=== PATIENT | female | born 1995 | race Caucasian/White ===

== ENCOUNTER 2021-08-03 11:52 | Outpatient (REF) | payer OTHER, SELFPAY ==
[2021-08-05 05:27] LABS: Varicella IgG Antibody <135.00 index
[2021-08-05 09:54] LABS: HBS Num1 1.85 mIU/mL (0-7.99); ~Hepatitis B Surface Antibody NONREACTIVE (Nonreactive)
[2021-08-05 18:47] LABS: TS Negative Control Passed; TS Panel A 0; TS Panel B 0; TS Positive Control Passed; TSpotTB Negative (Negative)
== END 2021-08-03 11:53 | disposition home or self-care (01) ==
LOC: HO.HMGCLDS 11:52
PROVIDERS: PCP Internal Medicine; Visit Provider Internal Medicine
DX: Z01.84 Encounter for antibody response examination (principal); Z11.1 Encounter for screening for respiratory tuberculosis; Z78.9 Other specified health status
CPT/HCPCS: 36415; 86481; 86706; 86735; 86762; 86765; 86787

== ENCOUNTER 2021-08-24 10:51 | Outpatient (REF) | payer OTHER, SELFPAY ==
[2021-08-24 14:14] LABS: Mean Corpuscular HGB Conc 29.4 g/dl (31.0-35.0); Mean Corpuscular Hemoglobin 18.8 pg (27.0-33.0)
[2021-08-24 14:16] LABS: Hematocrit 37.4 % (37.0-47.0); Red Blood Count 5.86 X10*6/uL (4.20-5.50); Red Cell Distribution Width 17.9 % (11.0-16.0); White Blood Count 9.3 X10*3/uL (4.8-10.8)
[2021-08-24 14:21] LABS: Mean Corpuscular Volume 63.8 fL (80.0-98.0)
[2021-08-24 14:30] LABS: Alanine Aminotransferase 24 U/L (0-31); Albumin Level 4.3 g/dL (3.5-5.0); Alkaline Phosphatase 92 U/L (39-117); Anion Gap 11 (12-20); Aspartate Amino Transferase 19 U/L (5-31); Bilirubin Total 0.6 mg/dL (0.0-1.0); Blood Urea Nitrogen 12 mg/dL (9-16); Calcium 9.2 mg/dL (8.4-10.2); Carbon Dioxide 26 mmol/L (22-29); Chloride 105 mmol/L (96-108); Cholesterol 116 mg/dL; Estimated Glomerular Filt Rate > 60; Glucose Fasting 81 mg/dL (60-99); HDL Cholesterol 43 mg/dL; LDL Cholesterol Calculated 65 mg/dl; Potassium 4.2 mmol/L (3.3-5.1); Sodium 138 mmol/L (135-145); Triglycerides 41 mg/dL
[2021-08-24 14:39] LABS: Platelet Count 198 X10*3/uL (160-400)
[2021-08-25 09:06] LABS: Varicella IgG Antibody <135.00 index
== END 2021-08-24 10:52 | disposition home or self-care (01) ==
LOC: HO.HMGCLDS 10:51
PROVIDERS: Visit Provider Internal Medicine
DX: Z00.00 Encounter for general adult medical examination without abnormal findings (principal); J45.909 Unspecified asthma, uncomplicated; Z78.9 Other specified health status
CPT/HCPCS: 36415; 80053; 80061; 85027; 86787

== ENCOUNTER 2022-01-20 09:24 | Outpatient (REF) | payer OTHER, SELFPAY ==
[2022-01-20 11:28] LABS: Iron 114 mcg/dL (30-160); Percent Iron Saturation 33 % (15-50); Total Iron Binding Capacity 347 mcg/dL (228-428); Unsaturated Iron Binding 233 ug/dL
[2022-01-20 11:43] LABS: HBS Num1 > 1000.00 mIU/mL (0-7.99); ~Hepatitis B Surface Antibody REACTIVE (Nonreactive)
== END 2022-01-20 09:25 | disposition home or self-care (01) ==
LOC: HO.HMGCLDS 09:24
PROVIDERS: Visit Provider Internal Medicine
DX: D64.9 Anemia, unspecified (principal); Z78.9 Other specified health status
CPT/HCPCS: 36415; 83540; 86706

== ENCOUNTER → 2022-02-16 15:09 | Outpatient (BNVA) | payer SELFPAY | PROVIDERS: PCP Internal Medicine | DX: Z02.83 Encounter for blood-alcohol and blood-drug test (principal) ==

== ENCOUNTER 2024-04-21 23:56 | Emergency (ER) | payer OTHER, SELFPAY ==
[2024-04-22 00:04] VITALS: BP 153/74; PULSE 89; RESP 16; TEMP 36.4; O2SAT 98; BMI 43.6
--- NOTE | 2024-04-22 00:13 | ED_ITS ---
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 She came in as the symptoms will not resolve. No rash, n/v. No fevers. MD complaint: allergic reaction Onset (ago): day(s) (Monday night) Exposure: food Symptoms: difficulty swallowing and hoarseness Severity: moderate Treatment prior to arrival: benadryl and other Previous Allergic Reaction History: anaphylaxis Related Data Previous Rx's ?Medication ?Instructions ?Recorded albuterol sulfate 90 mcg/actuation 2 puff inhalation Q6H PRN 11/03/21 aerosol inhaler shortness of breath or wheezing #8.5 grams montelukast 10 mg tablet 10 mg PO DAILY #90 tabs 11/03/21 epinephrine 0.3 mg/0.3 mL 0.3 mg (0.3 mL) IM Q10M PRN 04/22/24 injection, auto-injector anaphylaxis #2 ea prednisone 20 mg tablet 40 mg (2 x 20 mg) PO DAILY 5 days 04/22/24 #10 tabs Allergies Allergy/AdvReac Type Severity Reaction Status Date / Time iron Allergy Unknown beta thal Verified 04/22/24 00:06 pineapple [Pineapple] Allergy Unknown anaphylaxis, Verified 04/22/24 00:06 TONGUE AND LIP SWELLING Review of Systems Review of Systems: Constitutional : No Fever, No Chills ENT/Mouth : no oral swelling, pos Hoarseness, No Swallowing Difficulty Eyes: No Eye Pain, No Swelling, No Redness Cardiovascular : No Chest Pain, pos SOB Respiratory : No Cough, No Sputum, No Wheezing, No Smoke Exposure, No Dyspnea Gastrointestinal : No Nausea, No Vomiting, No Diarrhea, No abdominal Pain Genitourinary : No Dysuria, No Urinary Frequency, No Hematuria Musculoskeletal : No joint pain, No Myalgias, No Joint Swelling Skin : No Skin Lesions, positive rash Neuro : No Weakness, No Numbness, No Headache Psych : No Anxiety/Panic, No Depression All other systems reviewed and are negative [facility], [facility] Past Medical History Attestation statement: The following information was validated with the patient. Source: old records reviewed Medical History Anemia Annual physical exam Asthma Allergic rhinitis Beta thalassemia minor Seasonal allergies Anxiety with depression Surgical History No pertinent past surgical history Family History Family History (Updated 06/15/20 @ 08:18 by Elsa Pettit, RMA, STRIPPER APPRENTICE) Father No problems noted. Mother No problems noted. Brother No problems noted. Sister No problems noted. Social History Social History (Updated 04/22/24 @ 00:16 by Jessenia Poe DO) Alcohol intake: never Patient Tobacco Use Status: Never used Tobacco Advance Directives: No Advance Directives Information Provided: Yes Physical Exam ED Vital Signs: Vital Signs - 24 hr 04/22/24 00:04 04/22/24 00:20 Temperature 97.6 F Pulse Rate 89 70 Respiratory Rate 16 20 Blood Pressure 153/74 H Pulse Oximetry 98 Oxygen Delivery Method Room Air BMI result Body Mass Index 43.6 Appearance: Alert. Oriented X3. No acute distress. Eyes: Pupils equal, round and reactive to light. ENT: Pharynx normal. no oral swelling, mild insp stridor heard Neck: Normal inspection. Neck supple. CVS: Normal heart rate and rhythm. Pulses normal. Respiratory: No respiratory distress. Breath sounds normal. Abdomen: Soft and nontender. Skin: Skin warm and dry. Normal skin color. Normal skin turgor. Extremities: No lower extremity edema. No calf ttp Neuro: Oriented X 3. No motor deficit. No sensory deficit. 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 At this time there is no oral swelling on exam no hypoxia and no wheezing on lung exam will start on IV steroids and racemic epi if no improvement will dose with IM epi Differential Diagnosis Differential Diagnoses: The differential diagnosis associated with the presentation includes allergic reaction Admission/Observation Consideration of admission/observation: Escalation of care including admission/observation considered resolved symptoms does not want to stay for 2 hour observation with racemic epi they live down the road and she has not progressed to full angioedema since Monday. She is also RN Independent Historian Clinical information obtained from an independent historian. History obtained from or confirmed by: Parent External Record Review External record reviewed: Office record Prescription Management I considered prescription management with: Other Discharge Plan Discharge Clinical Impression: Allergic reaction Qualifiers: Encounter type: initial encounter Qualified Code(s): T78.40XA - Allergy, unspecified, initial encounter Patient Disposition: Home, Self-Care Instructions: General Allergic Reaction (ED) Additional Instructions: return for any worsening symptoms such as swelling, difficulty breathing, fevers or any other concerns CARRY YOUR EPI PEN WITH YOU AT ALL TIMES take steroid with food Prescriptions: New prednisone 20 mg tablet 40 mg PO DAILY 5 Days Qty: 10 0RF epinephrine 0.3 mg/0.3 mL auto-injector 0.3 mg IM Q10M PRN (Reason: anaphylaxis) Qty: 2 0RF Rx Instructions: for 2 doses No Action albuterol sulfate 90 mcg/actuation HFA aerosol inhaler 2 puff inhalation Q6H PRN (Reason: shortness of breath or wheezing) Qty: 8.5 1RF montelukast 10 mg tablet 10 mg PO DAILY Qty: 90 3RF Stand Alone Forms: Work/School Release Print Language: Occitan
[2024-04-22] MEDS: methylPREDNISolone Sod Succ 125 MG/2 ML VIAL IVPUSH (00:19)
[2024-04-22 00:20] VITALS: PULSE 70; RESP 20; O2SAT 99
[2024-04-22] MEDS: Racepinephrine HCL 0.5 ML VIAL.NEB INHALE (00:20)
[2024-04-22 01:22] VITALS: BP 153/74; PULSE 89; RESP 16; TEMP 36.4; O2SAT 99
== END 2024-04-22 01:23 | disposition home or self-care (01) ==
PROVIDERS: Emergency Provider Emergency Medicine; PCP Internal Medicine
DX: T78.40XA Allergy, unspecified, initial encounter (principal); R49.0 Dysphonia; X58.XXXA Exposure to other specified factors, initial encounter
CPT/HCPCS: 94640; 96372; 99283; 99284; J2919

== ENCOUNTER 2024-06-04 09:59 | Outpatient (AMB) | payer OTHER, SELFPAY ==
[2024-06-04 10:19] VITALS: BP 110/70; PULSE 86; O2SAT 97; BMI 40.9
--- NOTE | 2024-06-04 10:19 | MHC.PC.OV ---
Vital Signs 06/04/24 10:19 Height 5 ft 7 in Weight 261 lb BMI 40.9 BP 110/70 Blood Pressure Location Lt brachial Position Sitting Pulse 86 Pulse Source Pulse Oximeter Pulse Oximetry (%) 97 Oxygen Delivery Method Room Air Intake Visit Reasons: PE/overdue 2 yrs. Intake Note: Pt is here today for PE. Allergies iron Allergy (Unknown, Verified 06/04/24 10:20) beta thal pineapple [Pineapple] Allergy (Unknown, Verified 06/04/24 10:20) anaphylaxis, TONGUE AND LIP SWELLING Medication List - Last Reconciled 06/04/24 by Heidy Chase MD albuterol sulfate 90 mcg/actuation 2 puffs inhalation Q6H PRN epinephrine 0.3 mg (0.3 mL) IM Q10M PRN Tobacco use date assessed: 06/04/24 Dental Screening Dental Screen Date: 06/04/24 Did you have a dental visit in the last 12 months?: Yes Did you have a dental problem in the last 6 months where you did not have access to dental care?: No Was dental information given to patient?: Patient has dentist HPI PE/overdue 2 yrs. HPI Details Pt presents for PE. [facility] Medical History (Updated 06/04/24 @ 11:10 by Heidy Chase MD) Anemia Annual physical exam Asthma Allergic rhinitis Beta thalassemia minor Seasonal allergies Anxiety with depression Surgical History No pertinent past surgical history Family History (Updated 06/04/24 @ 10:58 by Heidy Chase MD) Father No problems noted. Mother Uterine cancer Brother No problems noted. Sister No problems noted. 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 1. Little interest or pleasure in doing things: not at all 2. Feeling down, depressed, or hopeless: not at all 3. Trouble falling or staying asleep, or sleeping too much: not at all 4. Feeling tired or having little energy: several days 5. Poor appetite or overeating: not at all 6. Feeling bad about yourself - or that you are a failure or have let yourself or your family down: not at all 7. Trouble concentrating on things, such as reading the newspaper or watching television: not at all 8. Moving or speaking so slowly that other people could have noticed. Or the opposite - being so fidgety or restless that you have been moving around a lot more than usual: not at all 9. Thoughts that you would be better off or of hurting yourself in some way: not at all Total score: 1 Depression Screening Interpretation: Negative Depression Screening Done: Yes [id number] - PHQ-9 Billing: Yes Source: Developed by Drs. Issac Shipman, Ivana Chapman, Aly Goldberg and colleagues, with an educational michael from [address]. Thrive Questionnaire Date Thrive assessed: 06/04/24 I am a: Patient What is your living situation today?: I have a steady place to live Within the past 12 months, did the food you bought not last and you didn't have the money to get more?: Never true Within the past 12 months, did you worry whether your food would run out before you got money to buy more?: Never true Do you have trouble paying for medicines?: No Do you have trouble getting transportation to medical appointments?: No Do you have trouble paying your heating and electricity bill?: No Do you have trouble taking care of your child, family member or friend?: No Do you have trouble with day-to-day activities such as bathing, preparing meals, shopping, managing finances, etc.?: No Are you currently unemployed and looking for a job?: No Are you interested in more education?: Yes Please select the resources that you would like help with: None Currently or been in a relationship where the following occur: No concerns reported THRIVE Score: 0 AUDIT C Alcohol Use Questionnaire (AUDIT-C) 1. How often do you have a drink containing alcohol?: Monthly or less 2. How many drinks containing alcohol do you have on a typical day when you are drinking?: 1 or 2 3. How often do you have six or more drinks on one occasion?: Never Total Score: 1 ELIZABETH-7 AMB Questionnaire ELIZABETH-7 Date ELIZABETH - 7 assessed: 06/04/24 Feeling nervous, anxious, or on edge: 1 = Several days Not being able to stop or control worryin = Not at all Worrying too much about different things: 1 = Several days Trouble relaxin = Several days Being so restless that it is hard to sit still: 0 = Not at all Becoming easily annoyed or irritable: 1 = Several days Feeling afraid as if something awful might happen: 0 = Not at all Total ELIZABETH-7 score (0-4 normal; 5-9 mild; 10-14 moderate; 15-21 severe): 4 Source: Developed by Drs. Issac Shipman, Ivana Chapman, Aly Goldberg and colleagues, with an educational michael from [address]. ELIZABETH-7 Assessment Billing ELIZABETH-7 Assessment Tool: ELIZABETH-7 Assessment 11325 Review of Systems Const All systems reviewed & are unremarkable except as noted in HPI and below Eyes Reports no additional complaints ENT Reports no additional complaints Card Reports no additional complaints Resp Reports no additional complaints GI Reports no additional complaints Reports no additional complaints Physical exam (Primary Care) Vital Signs: Last Vital Signs Pulse 86 06/04/24 10:19 BP 110/70 06/04/24 10:19 Pulse Ox 97 06/04/24 10:19 Oxygen Delivery Method Room Air 06/04/24 10:19 BMI result Body Mass Index 40.9 Tobacco/Smoking Status: Tobacco use Status Tobacco use date assessed 06/04/24 06/04/24 10:25 Patient Tobacco Use Status Never used Tobacco 06/04/24 10:25 e-Cigarette/Vaping Use Never Used 06/04/24 10:25 PHQ-9: PHQ-9 Score PHQ-9: Total score 1 06/04/24 10:25 Depression Screening Interpretation: Negative Thrive Assessment: Date of Thrive Assessment Date Thrive assessed 06/04/24 06/04/24 10:25 Currently or been in a relationship where the following occur: No concerns reported Const General: no acute distress HENMT Head: Yes normal to inspection Ears: hearing grossly normal bilaterally Face and sinus: Yes normal facial exam Mouth: Normal oral and palatal mucosa present Throat: Yes posterior oropharynx normal Eyes General: appearance normal, both eyes and all related structures Neck Neck: Yes no lymphadenopathy and Yes supple Resp Effort & Inspection: normal respiratory effort Auscultation: clear to auscultation bilaterally Cardio Rhythm: regular rhythm Heart sounds: S1 normal heart sound present and S2 normal heart sound present GI Inspection: Yes normal to inspection Palpation (GI): Soft to palpation Percussion: Yes normal to percussion Auscultation: normal bowel sounds Coding Level of Care Code Est Pt Prev Care 18-39y(27526) Diagnoses Annual physical exam Z. External hemorrhoid K64.4 Additional Codes ELIZABETH-7 Assessment Billing - ELIZABETH-7 Assessment Tool: ELIZABETH-7 Assessment 71298 ([id number]) PHQ-9 - 68352 - PHQ-9 Billing: Yes ([id number]) Assessment & Plan Assessment & Plan (1) Annual physical exam: Code(s): Z00. - Encounter for general adult medical examination without abnormal findings Category: Medical Plan: Well-balanced diet regular physical activity discussed with the patient she will have a fasting blood work today. Patient will schedule an appointment with pad machine offbearer for pelvic exam and Pap smear (2) External hemorrhoid: Code(s): K64.4 - Residual hemorrhoidal skin tags Category: Medical Plan: Patient was advised to avoid constipation and will use over the counter hemorrhoid cream as needed Orders: Orders Complete Blood Count Auto Diff Today Z00.00 - Encounter for general adult medical examination without abnormal findings Lipid Panel Today Z00.00 - Encounter for general adult medical examination without abnormal findings Comprehensive [place]. Panel Fast Today Z00.00 - Encounter for general adult medical examination without abnormal findings UA w Microscopic Today Z00.00 - Encounter for general adult medical examination without abnormal findings TSH reflex Free T4 Today Z00.00 - Encounter for general adult medical examination without abnormal findings Vitamin D 25-OH Total Today Z00.00 - Encounter for general adult medical examination without abnormal findings Medications: Refilled albuterol sulfate 90 mcg/actuation 2 puffs inhalation Q6H PRN 8.5 grams 1RF shortness of breath or wheezing
--- OUTSIDE RECORDS SUMMARY | 2024-06-05 19:40 | XMS_ITS | Data Portability ---
Author Organization [facility] [address] Address [address] [place] [address] Assessment No assessment recorded. Plan of Treatment Reminders Order Date Submit Date Provider Last Modified By Organization Details Last Modified Time Details Appointments None recorded. Lab None recorded. Referral None recorded. Procedures None recorded. Surgeries None recorded. Imaging None recorded. Medication Orders tuberculin PPD 5 tub. unit/0.1 mL intradermal injection solution 2022 023 [email or web address] Not available 12:36:26 Patient TargetsNo targets recorded. Patient InstructionsNo instructions recorded. Reason for Referral None Reported. Medical Equipment None Reported. Medications Name Sig Start Date Stop Date Status Note LastModified by Organization Details LastModified Time tuberculin PPD 5 tub. unit/0.1 mL intradermal injection solution Inject 0.1 mL by intradermal route for 1 day. 2022 active Not Available Not Available Not Avai lable montelukast 10 mg tablet TAKE 1 TABLET BY MOUTH DAILY active Not Available Not Available Not Available albuterol sulfate HFA 90 mcg/actuatio n aerosol inhaler INHALE 2 PUFFS BY MOUTH EVERY 6 HOURS NEEDED FOR SHORTNESS OF BREATH OR WHEEZING active Not Available Not Available Not Available Vitals None Recorded Social History None recorded. Functional Status None recorded. Mental Status None recorded. Family History Nothing Reported. Medical History No medical history recorded. Gynecological HistoryNo gynecological history recorded. Obstetrics History GPAL:G 0 P 0 0 0 0 Past Encounters Encounter ID Performer Location Encounter Start Date Encounter Closed Date Diagnosis/Indication Diagnosis SNOMED-CT Code Diagnosis ICD10 Code [id number] [address] [address] 07/29/2021 10:02:39 07/29/2021 11:17:19 [id number] [address] [facility] [place] [address] 12/17/2018 19:31:29 12/17/2018 19:55:47 [id number] [address] [facility] [place] [address] 07/29/2021 10:02:02 07/29/2021 11:17:15 [id number] Iker Ramirez, NURSE MONITORING [address] [facility] [place] [address] 08/08/2022 11:48:27 08/08/2022 12:42:11 History and physical examination, occupation [id number] Z02.1 Health Concerns Section Related Observation LastModified by Organization Detai ls LastModified Time None Recorded Concern Status LastModified by Organization Details LastModified Time None Recorded Advance Directives Directive None Recorded Payers Encounter Date Sequence Insurance Name Policy Number Policy Luis Covered Member ID Luis Member ID Guarantor Name 12/17/2018 1 [facility] [id number] Babs Caal [id number] Babs Caal 08/08/2022 DO NOT USE Babs Caal PAY AT TIME OF SERVICE Babs Caal OBGyn Episode No OBEpisode recorded.
== END 2024-06-04 11:07 | disposition home or self-care (01) ==
PROVIDERS: PCP Internal Medicine; Visit Provider Internal Medicine
DX: Z00.00 Encounter for general adult medical examination without abnormal findings (principal); K64.4 Residual hemorrhoidal skin tags

== ENCOUNTER 2024-06-04 09:59 | Outpatient (REF) | payer OTHER, SELFPAY ==
[2024-06-04 13:02] LABS: MANUAL DIFF FLAG NO
[2024-06-04 13:12] LABS: Basophils Percent Auto 0.2 % (0-2); Eosinophils Absolute Auto 0.1 X10*3/uL (0.0-0.4); Hematocrit 37.6 % (37.0-47.0); Imm Gran Abs Auto 0.03 X10*3/uL (0.00-0.03); Imm Gran Pct Auto 0.4 % (0.0-0.4); Lymphocytes Absolute Auto 2.5 X10*3/uL (1.2-4.9); Lymphocytes Percent Auto 29.8 % (20-40); Mean Corpuscular HGB Conc 29.3 g/dl (31.0-35.0); Mean Corpuscular Hemoglobin 18.2 pg (27.0-33.0); Monocytes Absolute Auto 0.4 X10*3/uL (0.1-1.2); Neutrophils Absolute Auto 5.4 x10*3/uL (2.0-8.3); Neutrophils Percent Auto 63.6 % (45-73); Platelet Count 207 X10*3/uL (160-400); Red Blood Count 6.03 X10*6/uL (4.20-5.50); Red Cell Distribution Width 17.9 % (11.0-16.0); White Blood Count 8.4 X10*3/uL (4.8-10.8)
[2024-06-04 13:17] LABS: Mean Corpuscular Volume 62.4 fL (80.0-98.0)
[2024-06-04 13:20] LABS: Appearance Urine Cloudy; Color Urine Yellow; Glucose Urine UA Negative (Negative); Leukocyte Esterase Urine Negative (Negative); Nitrite Urine Negative (Negative); Specific Gravity - Urine 1.025 (1.005-1.025); Urine Blood Negative (Negative); Urine Ketones Negative (Negative); Urine Protein Negative (Neg-Trace)
[2024-06-04 13:28] LABS: Bacteria Urine 4+ (None Seen); Hyaline Casts Urine 0-2 /LPF (0-2); RBC Urine 0-2 /HPF (0-2); WBC Urine 0-5 /HPF (0-5)
[2024-06-04 13:50] LABS: Alanine Aminotransferase 20 U/L (0-31); Albumin Level 4.2 g/dL (3.5-5.0); Alkaline Phosphatase 78 U/L (39-117); Anion Gap 12 (12-20); Aspartate Amino Transferase 19 U/L (5-31); Bilirubin Total 0.4 mg/dL (0.0-1.0); Blood Urea Nitrogen 11 mg/dL (9-16); Calcium 9.1 mg/dL (8.4-10.2); Carbon Dioxide 27 mmol/L (22-29); Chloride 107 mmol/L (96-108); Cholesterol 117 mg/dL (<200); Estimated Glomerular Filt Rate > 60; Glucose Fasting 81 mg/dL (60-99); HDL Cholesterol 37 mg/dL (>40); LDL Cholesterol Calculated 70 mg/dL (<100); Potassium 4.6 mmol/L (3.3-5.1); Sodium 141 mmol/L (135-145); Total Protein 7.2 g/dL (6.5-8.0); Triglycerides 53 mg/dL (<150)
[2024-06-04 13:52] LABS: Vitamin D 25-OH Total 16.3 ng/mL (>30)
[2024-06-04 14:32] LABS: TSH reflex Free T4 1.16 uIU/mL (0.32-4.0)
== END 2024-06-04 10:00 | disposition home or self-care (01) ==
LOC: HO.HMGCLDS 09:59
PROVIDERS: PCP Internal Medicine; Visit Provider Internal Medicine
DX: Z00.00 Encounter for general adult medical examination without abnormal findings (principal)
CPT/HCPCS: 36415; 80053; 80061; 81001; 82306; 84443; 85025; 96127

== ENCOUNTER 2024-10-16 11:51 | Outpatient (AMB) | payer OTHER, SELFPAY ==
--- NOTE | 2024-10-16 12:00 | AM.OFFWIN_ITS ---
Intake Vital Signs 10/16/24 12:05 Weight 262 lb BP 112/78 Blood Pressure Location Rt brachial Position Sitting Pulse 62 Pulse Source Pulse Oximeter Temp 98.7 F Temp Source Oral Pulse Oximetry (%) 98 Oxygen Delivery Method Room Air Intake Visit Reasons: EP-?uti, back pain, numbness in lt thigh Intake Note: Patient here for frequent urination, bladder pressure that has been present for a couple of weeks. she also wanted to discuss her mid back pain that has been present for a while now but the last couple of weeks has worsened to the point where now she has numbness and tingling in thigh. Patient Tobacco Use Status: Never used Tobacco Allergies iron Allergy (Unknown, Verified 06/04/24 10:20) beta thal pineapple [Pineapple] Allergy (Unknown, Verified 06/04/24 10:20) anaphylaxis, TONGUE AND LIP SWELLING Medication List - Last Reconciled 10/16/24 by Fox Echols MD albuterol sulfate 90 mcg/actuation 2 puffs inhalation Q6H PRN epinephrine 0.3 mg (0.3 mL) IM Q10M PRN HPI EP-?uti, back pain, numbness in lt thigh HPI Details History - The patient is a 29-year-old female pr esenting with increased back pain and newly developed pins and needles sensation in the left thigh. - She reports a history of chronic back pain for several years, with the numbness in the left outer thigh extending to the knee being a constant symptom. - The recent exacerbation of back pain a nd onset of pins and needles in the left thigh has been ongoing for the last one to two weeks. - also has been noticing frequency of ur ination and wanted to have a urinalysis done which came back negative - The patient drinks tea regularly, whic h could contribute to urinary frequency due to the diuretic effect of caffeine. 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 - Previous diagnostic imaging such as x- rays has not been performed for her back issues. Problem List - frequency of urination - Chronic Back Pain - Lumbar Radiculopathy (suspected due to symptoms and location of pain) Patient Instructions - Take Aleve with breakfast, and if need ed, once more in the evening for three to four days. - Switch to decaffeinated tea to see if it alleviates urinary symptoms. - Get an x-ray done as ordered, next doo r to this clinic. - Follow up on x-ray results through the patient portal or PCP - your urine test came back negative Review of Systems - General: No fever no chills - Neurological: No headaches no dizziness - Ear nose throat: No sore throat no hearing difficulty no ear pain - Cardiovascular: No syncope, no chest pain, no palpitations - Gastrointestinal: No nausea vomiting or diarrhea Physical Exam General: No acute distress HEENT: No acute findings Neck: Supple Respiratory system: Able to talk in full sentences, no audible wheeze Gastrointestinal: No pain Back: No pain with percussion over thoracic or lumbar area, range of motion intact Extremities: Numbness in left outer thigh extending to the knee, pins and needles sensation POT WASHER: Alert awake oriented x3 motor sensory intact, straight leg test negative left side, neuro exam nonfocal Skin: Normal turgor [facility] Medical History Anemia Annual physical exam Asthma Allergic rhinitis Beta thalassemia minor Seasonal allergies Anxiety with depression Surgical History No pertinent past surgical history Family History Father No problems noted. Mother Uterine cancer Brother No problems noted. Sister No problems noted. 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 partner, works as RN at [employer] Housing: House Alcohol intake: never Patient Tobacco Use Status: Never used Tobacco e-Cigarette/Vaping Use: Never Used service: No Current occupational status: employed Cognitive needs: No Hearing needs: No Vision needs: Yes Physical Exam Vital Signs: Last Vital Signs Temp 98.7 F 10/16/24 12:05 Pulse 62 10/16/24 12:05 BP 112/78 10/16/24 12:05 Pulse Ox 98 10/16/24 12:05 Oxygen Delivery Method Room Air 10/16/24 12:05 Assessment & Plan Assessment & Plan (1) Lumbar radiculitis: Code(s): M54.16 - Radiculopathy, lumbar region (2) Urine frequency: Code(s): R35.0 - Frequency of micturition Plan History - The patient is a 29-year-old female presenting with increased back pain and newly developed pins and needles sensation in the left thigh. - She reports a history of chronic back pain for several years, with the numbness in the left outer thigh extending to the knee being a constant symptom. - The recent exacerbation of back pain and onset of pins and needles in the left thigh has been ongoing for the last one to two weeks. - also has been noticing frequency of urination and wanted to have a urinalysis done which came back negative - The patient drinks tea regularly, which could contribute to urinary frequency due to the diuretic effect of caffeine. 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 - Previous diagnostic imaging such as x-rays has not been performed for her back issues. Problem List - frequency of urination - Chronic Back Pain - Lumbar Radiculopathy (suspected due to symptoms and location of pain) Patient Instructions - Take Aleve with breakfast, and if needed, once more in the evening for three to four days. - Switch to decaffeinated tea to see if it alleviates urinary symptoms. - Get an x-ray done as ordered, next door to this clinic. - Follow up on x-ray results through the patient portal or PCP - your urine test came back negative Orders: Orders XR lumbar spine 2-3V Today M54.16 - Radiculopathy, lumbar region Coding Level of Care Code Est Pt Level 3 (22431) Diagnoses Lumbar radiculitis M54.16 Urine frequency R35.0
[2024-10-16 12:05] VITALS: BP 112/78; PULSE 62; TEMP 37.1; O2SAT 98
--- OUTSIDE RECORDS SUMMARY | 2024-10-16 14:20 | XMS_ITS | Data Portability ---
Author Organization [facility] [address] Address [address] [place] [address] Assessment No assessment recorded. Plan of Treatment [...] Diagnosis/Indication Diagnosis SNOMED-CT Code Diagnosis ICD10 Code Diagnosis Note [id number] [address] [address] 07/29/2021 10:02:39 07/29/2021 11:17:19 [id number] [address] [place] [address] 12/17/2018 19:31:29 12/17/2018 19:55:47 [id number] [address] [place] [address] 07/29/2021 10:02:02 07/29/2021 11:17:15 [id number] Iker Ramirez, RESIDENTIAL SUPPORT WORKER [address] [place] [address] 08/08/2022 11:48:27 08/08/2022 12:42:11 History and physical examination, occupation [id number] Z02.1 Health Concerns Section Related Observation LastModified by Organization Detai ls LastModified Time None Recorded Concern Status LastModified by Organization Details LastModified Time None Recorded Advance Directives Directive None Recorded Payers Encounter Date Sequence Insurance Name Policy Number Policy Luis Covered Member ID Luis Member ID Guarantor Name 12/17/2018 1 [facility] [id number] Babs Caal [id number] Babs Caal 08/08/2022 DO NOT USE Babs Caal PAY AT TIME OF SERVICE PAY AT TIME OF SERVICE Babs Caal OBGyn Episode No OBEpisode recorded.
== END 2024-10-16 12:27 | disposition home or self-care (01) ==
PROVIDERS: PCP Internal Medicine; Visit Provider Internal Medicine
DX: M54.16 Radiculopathy, lumbar region (principal); R35.0 Frequency of micturition; Z13.9 Encounter for screening, unspecified

== ENCOUNTER 2024-10-16 11:51 | Outpatient (REF) | payer OTHER, SELFPAY ==
--- NOTE | ~2024-10-16 | XR_ITS ---
EXAMINATION: XR LUMBOSACRAL SPINE CLINICAL INFORMATION: M54.16 - Radiculopathy, lumbar region COMPARISON: None available. TECHNIQUE: Three views of the lumbosacral spine. FINDINGS: Normal bone mineralization. Trace right convex scoliosis, possibly positional. Normal lordosis and alignment. No subluxations. No compression deformity, fracture, or suspicious bone lesion. Disc spaces appear preserved. The facets are normally aligned. No significant facet arthrosis. The imaged sacrum and SI joints appear normal. There is no soft tissue abnormality. XR/XR lumbar spine 2-3V IMPRESSION: Essentially normal lumbar spine. Electronically signed by: Chirag Barron MD 10/18/2024 09:02 AM EDT
== END 2024-10-16 11:52 | disposition home or self-care (01) ==
LOC: HO.HMGCX 11:51
PROVIDERS: PCP Internal Medicine; Visit Provider Internal Medicine
DX: M54.16 Radiculopathy, lumbar region (principal); R35.0 Frequency of micturition
CPT/HCPCS: 72100; 81003

== ENCOUNTER → 2024-10-16 12:21 | Outpatient (BNV) | payer OTHER, SELFPAY | PROVIDERS: PCP Internal Medicine; Visit Provider Radiology Diagnostic Radiology | DX: M54.16 Radiculopathy, lumbar region (principal) | CPT/HCPCS: 72100 ==